=== PATIENT | female | born 1960 ===

== ENCOUNTER 2018-04-26 15:14 | Outpatient (CLI) | payer OTHER ==
[~2018-04-26] VITALS: Ht 157.5 cm; Wt 63.5 kg
== END 2018-04-26 15:30 | disposition home or self-care (01) ==
LOC: OFIC 805 15:14
DX: H66.92 Otitis media, unspecified, left ear (principal); H72.03 Central perforation of tympanic membrane, bilateral; H91.8X2 Other specified hearing loss, left ear